=== PATIENT | female | born 1960 | race Caucasian/White ===

== ENCOUNTER 2021-11-27 16:42 | Outpatient (REF) | payer MEDICARE, MEDICAID, SELFPAY ==
--- NOTE | ~2021-11-27 | MR_ITS ---
EXAMINATION: MR LUMBAR SPINE WITHOUT CONTRAST CLINICAL INFORMATION: 61-year-old with history of previous fusion, with low back pain. Postlaminectomy syndrome. COMPARISON: None TECHNIQUE: MRI of the lumbar spine was obtained using routine sequences without contrast. FINDINGS: Coronal Alignment: Wrey-zi-qvqwmpyb mid lumbar dextrocurvature noted, convex to the right at L3. Sagittal Alignment: There is trace retrolisthesis at L3-L4 and L2-L3 with lordotic reversal centered at L1. There is slight gibbus angulation at T12-L1 related to a chronic, healed compression fracture of L1. Lumbosacral Junction: Normal. 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 Vertebral Bodies: There is a moderate, chronic, healed compression fracture deformity of L1 with Schmorl's node formation along its superior endplate. Remaining vertebral body heights are well-maintained. There is ferromagnetic artifact partially obscuring the T12, L1 and L2 vertebral bodies and posterior elements consistent with previous posterior instrumented spinal fusion. Disc Spaces and Endplates: Siao-qp-nsgozljv disc volume loss at L4-L5 with disc desiccation, with similar findings at L3-L4, with minor spondylosis at L3-L4. Severe disc space height loss at L2-L3 noted with the near-complete disc space collapse, with Schmorl's nodes, disc desiccation and/or intradiscal vacuum disc phenomenon and spondylosis. Anterior marginal endplate spurring at T12-L1 with disc desiccation and moderate disc space height loss at this level. Spinal Canal: No abnormal developmental findings. Bone Marrow: Minimal type I and type II degenerative marrow signal changes along the endplates at L2-L3 noted. There is reactive subchondral bone marrow edema on both sides of the right L5-S1 facet joint consistent with facet arthropathy with similar but less prominent findings at L4-L5 on the right. No suspicious marrow replacing process. Conus Medullaris: Terminates at L2. Morphology and signal is normal. Intradural Nerve Roots: Within normal limits. L5-S1: No significant disc bulge or herniation. There is fuxv-yh-hisbfcxp left-sided and csxdxkou-cz-nsoufb right-sided facet arthrosis with some inflammatory changes at the right facet joint without significant spinal canal stenosis. No significant neural foraminal stenosis and no evidence for neural impingement. L4-L5: Concentric disc bulging is noted with a superimposed left-sided extraforaminal/foraminal disc protrusion and disc osteophyte complex with left lateral annular fissuring. There is mild flattening of the ventral dural sac and there is ligamentum flavum thickening, probably with some ligamentous disc ossification or calcification on the right, with moderate bilateral facet arthropathy and mild central spinal canal stenosis. There is crowding of the subarticular zones bilaterally with pbre-bb-ldterdbt left and lklpvplc-yq-mfzjup right lateral recess stenosis probably encroaching on the traversing L5 nerve roots, right more than left. There is moderate left-sided and scyy-rj-uvvnzwff right-sided neural foraminal stenosis with left lateral disc osteophyte complex contacting the extraforaminal left L4 nerve root. L3-L4: Concentric disc bulging is noted with slight retrolisthesis with superimposed left-sided foraminal/extra foraminal disc osteophyte complex. Ngpmexnl-rb-pndhny right-sided and moderate left-sided facet arthropathy is noted with vysj-md-xjalrwua trefoil spinal canal stenosis with crowding of the subarticular zones and lateral recesses bilaterally. Irbiyrma-jz-flyuoe left-sided and moderate right-sided neural foraminal stenosis is noted with impingement on the exiting left L3 nerve root. L2-L3: Posterolateral disc osteophyte complex noted, with diffuse disc bulging and endplate spurring, with flattening of the ventral dural sac and moderate bilateral facet arthropathy. There is ckdl-oq-hecsxtzn central spinal canal stenosis with crowding of the intradural nerve roots and there is crowding of the subarticular zones bilaterally with moderate bilateral facet arthrosis. Moderate bilateral neural foraminal stenosis is noted. L1-L2: Posterior instrumented spinal fusion hardware noted in place at this level. No disc bulge or herniation. Small perineural cysts in the neural foramina bilaterally. No significant canal or neuroforaminal stenosis. T12-L1: Posterior instrumented spinal fusion hardware noted in place. Mild chronic retropulsion of the superior endplate of the compressed L1 vertebral body noted with yqvi-bg-fuxtqexl flattening the ventral dural sac without cord impingement or significant canal stenosis. No significant neural foraminal stenosis. T11-T12: There is facet arthropathy bilaterally, right more than left, with ligamentum flavum thickening and flattening of the dorsal dural sac with possible ligamentous calcification contacting the dorsolateral spinal cord on the right at this level without cord compression. Tiny right paramedian disc protrusion noted. Moderate central spinal canal stenosis is noted at this level and there is a 9 mm perineural cyst in the left neural foramen. There is nzjevyqb-mg-mgtdlf right-sided and moderate left-sided neural foraminal stenosis at this level. Paraspinal/Retroperitoneal: The visualized paravertebral soft tissues are unremarkable. MR/MR lumbar spine wo con IMPRESSION: 1. Gfnr-yd-anpdaqcj mid lumbar dextrocurvature, with mild degrees of retrolisthesis at L2-L3 and L3-L4, with lordotic reversal centered at L1 and mild gibbus angulation at T12-L1. 2. Status post posterior instrumented spinal fusion at T12-L1 and L1-L2 as detailed above with a chronic, healed compression fracture deformity of L1 with mild retropulsion of the superior endplate without cord impingement. 3. Discogenic degenerative changes between L2-L3 and L4-L5 inclusive, most severe at L2-L3. Multilevel disc bulging and disc osteophyte complexes, as detailed above with multilevel bilateral facet arthropathy. Yqja-ae-uxjkhqqr of trefoil spinal canal stenosis at L3-L4, mild central spinal canal stenosis at L4-L5 and tofm-zu-qmxjqpxz central spinal canal stenosis at L2-L3 with crowding of the intradural nerve roots primarily at L2-L3. Multilevel bilateral lateral recess stenosis as detailed above. 4. Multilevel bilateral neural foraminal stenosis between L2-L3 and L4-L5 inclusive as detailed by level above. 5. Posterior element hypertrophic degenerative changes at T11-T12 with moderate spinal canal stenosis at this level without lizzy cord compression. Xttapiay-jx-sggnbu neural foraminal stenosis at this level, right more than left.
== END 2021-11-27 16:43 | disposition home or self-care (01) ==
LOC: HO.MRI 16:42
PROVIDERS: Visit Provider Physical Medicine & Rehabilitation
DX: M96.1 Postlaminectomy syndrome, not elsewhere classified (principal)
CPT/HCPCS: 72148

== ENCOUNTER 2023-10-02 08:14 | Emergency (ER) | payer MEDICARE, MEDICAID, SELFPAY ==
[2023-10-02] VITALS (11 sets, daily range): BP systolic 92–143; BP diastolic 52–84; PULSE 65–92; RESP 13–29; TEMP 36.7; O2SAT 85–100; BMI 20.1
--- NOTE | ~2023-10-02 | CT_ITS ---
EXAMINATION: CT CHEST WITH CONTRAST CLINICAL INFORMATION: Left-sided ribs pain following fall COMPARISON: None available. TECHNIQUE: Multidetector volumetric CT imaging of the chest was obtained after the administration of 85 mL of Omnipaque 350 intravenous contrast without immediate adverse reactions. Axial MIP volume rendering provided. Sagittal and coronal reformatted images were obtained. This CT examination was performed using dose optimization techniques as appropriate, variously including the following: *Automated exposure control *Adjustment of mA and/or kV according to patient size (this includes techniques or standardized protocols for targeted exams where dose is matched to indication/reason for exam; i.e. 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 Partially collapsed left lung surrounded by significant amount of air and there is pleural effusion in the dependent portion of the chest. Right lung is unremarkable. MEDIASTINUM: There is mild mediastinal shift toward the right AXILLA: No lymphadenopathy. UPPER ABDOMEN: Unremarkable OSSEOUS STRUCTURES: There is mildly displaced fractures of the deep 5 6 and 7 along with a mid scapular line . There is subcutaneous emphysema along the left CT/CT chest w IV con IMPRESSION: 1. Large pneumothorax on the left with partial collapse of the left lung and mediastinal shift toward the right. 2. Pleural effusion 3. Subcutaneous emphysema 4. Left-sided rib fractures. Fleischner guidelines were followed. This critical result was discussed with Lilly Muir at 11:50 PM on 10/02/2023 and it was ascertained that the content and urgency of the report was understood at the time of direct communication. Electronically signed by: Keith Juarez MD 10/02/2023 12:02 PM EDT
--- NOTE | ~2023-10-02 | CT_ITS ---
EXAMINATION: CT HEAD WITHOUT CONTRAST CT CERVICAL SPINE WITHOUT CONTRAST CLINICAL INFORMATION: Fall from ladder. Head strike. Neck pain. COMPARISON: CT head 03/08/2011. TECHNIQUE: Recycling Sorter images were obtained. CAD imaging of the head and cervical spine was performed without contrast. Data was reformatted into multiplanar images at the acquisition workstation. This CT examination was performed using dose optimization techniques as appropriate, including one or more of the following: Automated exposure control, iterative reconstruction, and adjustment of technique factors (mA and/or kVp) according to patient size (this includes techniques or standardized protocols for targeted exams where dose is matched to indication/reason for exam). Fleischner Society criteria for the followup of incidental pulmonary nodules was implemented if appropriate. DLP: 761.82 mGy-cm. FINDINGS: Head: There is no acute intracranial hemorrhage or abnormal extra-axial collection. No intracranial mass effect or midline shift. Lateral and third ventricles are normal. No hydrocephalus. Haley-white matter differentiation is preserved and there is no evidence of an acute infarct. The calvarium and skull base are intact. Mastoid air cells and middle ear cavities are well aerated. No active paranasal sinus disease. Cervical spine: Alignment is normal. Vertebral body heights are preserved. No acute cervical spine fracture. No abnormal prevertebral soft tissue swelling. Bridging bone fuses the left C3-C4 articular facet joint. There is also bridging bone that fuses both of the C7-T1 facet joints. There is slight loss of intervertebral disc height with associated hypertrophic disc osteophyte spurring at C5-C6. A bulging disc in conjunction with facet degenerative change at this level causes at least mild canal stenosis. Uncovertebral joint spurring in conjunction with facet degenerative change causes mild to moderate neuroforaminal encroachment at multiple levels. Visualized soft tissues of the neck are unremarkable. A known left pneumothorax is partially included within the [id number] of this examination. CT/CT head/brain wo IV con IMPRESSION: Head: No acute intracranial hemorrhage. Cervical Spine: No acute cervical spine fracture and no posttraumatic spinal subluxation. There is multilevel degenerative spondylosis of the cervical spine with at least mild canal stenosis at C5-C6. Uncovertebral joint spurring in conjunction with facet degenerative change causes mild to moderate neuroforaminal encroachment at multiple levels. Electronically signed by: Kyle Darling MD 10/02/2023 11:21 AM EDT RP
--- NOTE | ~2023-10-02 | XR_ITS ---
EXAMINATION: XR CHEST CLINICAL INFORMATION: Status post chest tube. COMPARISON: Chest radiograph 10/02/2023 8:37 AM. TECHNIQUE: Frontal view of the chest was obtained. FINDINGS: Chest tube overlying the lateral left lower lung. Decreased and now small left-sided hydropneumothorax. Persistent consolidative opacities in the retrocardiac space. Clear right lung. Stable appearance of the cardiomediastinal silhouette. Redemonstration of multiple left-sided rib fractures of various age. Fixation plate and screws in the left clavicle. Partially seen thoracolumbar spinal hardware. Residual intravenous contrast opacifies the bilateral renal collecting systems. XR/XR chest 1V IMPRESSION: 1. Decreased and now small left-sided hydropneumothorax. 2. Persistent consolidative opacities in the retrocardiac space. 3. Redemonstration of multiple left-sided rib fractures. Electronically signed by: Edith Javier MD 10/02/2023 11:29 AM EDT
--- NOTE | ~2023-10-02 | XR_ITS ---
EXAMINATION: XR CHEST CLINICAL INFORMATION: Fall, chest wall trauma. COMPARISON: No similar priors. TECHNIQUE: Frontal view of the chest was obtained. FINDINGS: Moderate size left-sided hydropneumothorax. Consolidative airspace opacities in the retrocardiac region. Clear right lung. Mildly displaced age indeterminate fractures of the left posterior third and fourth ribs. Subtle nondisplaced acutely appearing fractures of the left posterior fifth and sixth ribs. Chronic left clavicular fracture with overlying fixation plate and traversing screws. Partially seen thoracolumbar spinal hardware appear XR/XR chest 1V IMPRESSION: 1. Moderate size left-sided hydropneumothorax. 2. Consolidative airspace opacities in the retrocardiac region could be related with contusion, atelectasis, aspiration or pneumonia. 3. Multiple left-sided rib fractures, likely a combination of subacute/chronic and acute. Please refer to already ordered CT chest for additional details which will be dictated separately. Electronically signed by: Edith Javier MD 10/02/2023 10:06 AM EDT
--- NOTE | ~2023-10-02 | XR_ITS ---
EXAMINATION: XR ELBOW, LEFT CLINICAL INFORMATION: Pain, fall. COMPARISON: Radiograph left elbow 03/08/2011. TECHNIQUE: AP, lateral, and oblique views of the left elbow. FINDINGS: The bones and soft tissues are normal. No fracture or joint effusion. Alignment is anatomic. Joint spaces are maintained. XR/XR elbow LT min 3V IMPRESSION: Normal left elbow. Electronically signed by: Edith Javier MD 10/02/2023 11:27 AM EDT
--- NOTE | ~2023-10-02 | CT_ITS ---
EXAMINATION: CT ABDOMEN AND PELVIS WITH CONTRAST CLINICAL INFORMATION: Left sided abdominal pain, status post fall COMPARISON: None available. TECHNIQUE: Multidetector volumetric images were obtained from the superior aspect of the liver through the pubic symphysis following administration 85 mL of Omnipaque 350 intravenous contrast. Sagittal and coronal reformatted images were obtained on the technologist's workstation. Oral contrast: No This CT examination was performed using dose optimization techniques as appropriate, variously including the following: *Automated exposure control *Adjustment of mA and/or kV according to patient size (this includes techniques or standardized protocols for targeted exams where dose is matched to indication/reason for exam; i.e. extremities or head) *Use of iterative reconstruction technique DLP: 376 mGy-cm FINDINGS: LUNG BASES: There is pneumothorax, left lung partial collapse and airspace disease with air bronchograms seen in the left lung base as well as small pleural effusion. There is subcutaneous emphysema along the left chest wall. LIVER, GALLBLADDER, AND BILIARY TREE: The liver is normal in size, shape, and attenuation. No focal hepatic lesion or biliary ductal dilatation is present. The gallbladder is unremarkable with no evidence of radiopaque gallstones, gallbladder wall thickening, or obvious pericholecystic inflammatory changes. PANCREAS: Unremarkable. SPLEEN: Unremarkable. ADRENAL GLANDS: Unremarkable. KIDNEYS AND URETERS: The kidneys are normal in size, shape, and attenuation. No hydronephrosis, hydroureter, or calculi seen. No perinephric stranding. BLADDER: Unremarkable. GASTROINTESTINAL TRACT: There is constipation. Loops of colon are otherwise unremarkable. Appendix is not seen. There is no ascites. ABDOMINAL WALL: No significant hernia is appreciated. LYMPH NODES: Normal. VASCULAR: Unremarkable. PELVIC VISCERA: Uterus is surgically absent. OSSEOUS STRUCTURES: Patient is status post fusion of L2-T12 and compression deformity L1 CT/CT abdomen pelvis w IV con IMPRESSION: 1. Left pneumothorax, airspace disease in the left lung base and small pleural effusion. 2. Constipation. 3. Status post fusion of L2-T12 and compression deformity of L1. Fleischner guidelines were followed. Electronically signed by: Keith Juarez MD 10/02/2023 12:12 PM EDT
--- NOTE | ~2023-10-02 | CT_ITS ---
EXAMINATION: CT HEAD WITHOUT CONTRAST CT CERVICAL SPINE WITHOUT CONTRAST CLINICAL INFORMATION: Fall from ladder. Head strike. Neck pain. COMPARISON: CT head 03/08/2011. TECHNIQUE: Molder Helper images were obtained. CAD imaging of the head and cervical spine was performed without contrast. Data was reformatted into multiplanar images at the acquisition workstation. This CT examination was performed using dose optimization techniques as appropriate, including one or more of the following: Automated exposure control, iterative reconstruction, and adjustment of technique factors (mA and/or kVp) according to patient size (this includes techniques or standardized protocols for targeted exams where dose is matched to indication/reason for exam). Fleischner Society criteria for the followup of incidental pulmonary nodules was implemented if appropriate. DLP: 761.82 mGy-cm. FINDINGS: Head: There is no acute intracranial hemorrhage or abnormal extra-axial collection. No intracranial mass effect or midline shift. Lateral and third ventricles are normal. No hydrocephalus. Haley-white matter differentiation is preserved and there is no evidence of an acute infarct. The calvarium and skull base are intact. Mastoid air cells and middle ear cavities are well aerated. No active paranasal sinus disease. Cervical spine: Alignment is normal. Vertebral body heights are preserved. No acute cervical spine fracture. No abnormal prevertebral soft tissue swelling. Bridging bone fuses the left C3-C4 articular facet joint. There is also bridging bone that fuses both of the C7-T1 facet joints. There is slight loss of intervertebral disc height with associated hypertrophic disc osteophyte spurring at C5-C6. A bulging disc in conjunction with facet degenerative change at this level causes at least mild canal stenosis. Uncovertebral joint spurring in conjunction with facet degenerative change causes mild to moderate neuroforaminal encroachment at multiple levels. Visualized soft tissues of the neck are unremarkable. A known left pneumothorax is partially included within the bjjep-[id number]-boax of this examination. CT/CT cervical spine wo IV con IMPRESSION: Head: No acute intracranial hemorrhage. Cervical Spine: No acute cervical spine fracture and no posttraumatic spinal subluxation. There is multilevel degenerative spondylosis of the cervical spine with at least mild canal stenosis at C5-C6. Uncovertebral joint spurring in conjunction with facet degenerative change causes mild to moderate neuroforaminal encroachment at multiple levels. Electronically signed by: Kyle Darling MD 10/02/2023 11:21 AM EDT
--- NOTE | 2023-10-02 08:41 | ED.GENADULT ---
HPI - General Adult General Chief complaint: Fall Stated complaint: FALL 2 DAYS AGO Time Seen by Provider: 10/02/23 08:41 Source: patient and EMS Mode of arrival: EMS Limitations: no limitations History of Present Illness ED Provider: Luz Maria GAYLE HPI narrative: This is a 62 year old female pmhx significant for HLD presents s/p fall of ladder 2 days ago, patient reports she was on the ladder was an old bladder that was not working properly, the legs fell from underneath her, she landed on her left side hurting her left ribs left lower abdomen and left elbow. She reports since then she is having significant discomfort with breathing, rib pain, left elbow pain. All of these worse with movement better at rest. She reports today she has been significantly short of breath, this has never happened to her before. She denies head strike or loss of consciousness. She is not on blood thinners. Denies chest pain, nausea, vomiting, vision changes, dizziness, weakness, headache. Related Data Allergies Allergy/AdvReac Type Severity Reaction Status Date / Time codeine [CODEINE] Allergy Unknown NAUSEA & Verified 10/02/23 10:38 VOMITING Review of Systems Review of Systems: Yes all other systems are reviewed and are negative PMFSH Past Medical History Source: old records reviewed and nursing notes reviewed Social History Social History Advance Directives: No Advance Directives Information Provided: Yes Physical Exam ED Vital Signs: Vital Signs - 24 hr 10/02/23 08:34 10/02/23 09:30 10/02/23 09:40 Pulse Rate 92 71 70 Respiratory Rate 24 H 24 H 13 Blood Pressure 94/59 L 100/61 99/63 Pulse Oximetry 85 L 100 99 Oxygen Delivery Method Room Air Oxygen Flow Rate 10/02/23 09:48 10/02/23 09:50 10/02/23 09:55 Pulse Rate 71 74 73 Respiratory Rate 29 H 17 15 Blood Pressure 98/62 141/84 H 143/78 H Pulse Oximetry 100 100 98 Oxygen Delivery Method Oxygen Flow Rate 10/02/23 10:00 10/02/23 11:09 Pulse Rate 78 67 Respiratory Rate 19 16 Blood Pressure 131/77 99/68 Pulse Oximetry 97 88 L Oxygen Delivery Method Oxymask Oxygen Flow Rate 5 BMI result Body Mass Index 20.1 vss Appearance: Alert.? Oriented X3.? No acute distress.? Head: Normocephalic, atraumatic, no step-offs or deformities Eyes: Pupils equal, round and reactive to light.? Neck: Normal inspection.? Neck supple.? CVS: Normal heart rate and rhythm.? Pulses normal.? Respiratory: No respiratory distress.? Breath sounds normal.? Abdomen: Soft and nontender.?+ tenderness to palpation to entire left side laterally and anteriorly. No paradoxical breathing Skin: Skin warm and dry.? Normal skin color.? Normal skin turgor.? Extremities: No lower extremity edema.? No calf ttp. 5/5 strength to bilateral upper and lower extremities Neuro: Oriented X 3.? No motor deficit.? No sensory deficit. CN 2-12 intact Course Reevaluation(s) Reevaluation #1: Chest tube placed by thoracic SILVANA Blood. Time: 09:49 Reevaluation #2: Patient's CBC is unremarkable. No notable anemia. Chemistry with no acute findings needing intervention. Slightly elevated transaminases this may be patient's baseline I do not have a baseline to compare with. No abdominal tenderness on exam. Will also cover patient with ceftriaxone and azithromycin for possible pneumonia/aspiration. Time: 11:00 Reevaluation #3: Spoke w/ Dr. Ashby who recommends patient should get an epidural which cant be done here today. Patient would benefit from trauma transfer to [facility]. Time: 12:37 Additional Reevaluation(s): Patient will be a level two trauma transfer to [facility] [place] Dr. Smith accepting. Patient and ok with plan and fajardo of plan. Patient will go with a disc and all images uploaded to [facility] Medications Administered Discontinued Medications Generic Name Dose Route Start Last Admin Trade Name Freq PRN Reason Stop Dose Admin Diphtheria/Tetanus/Acell Pertussis 0.5 ml 10/02/23 08:49 10/02/23 09:22 Diphth,Pertus(Acell),Tet Adult 0.5 Ml Syringe IM 10/02/23 08:50 0.5 ml .ONCE ONE Administration Fentanyl 50 mcg 10/02/23 09:05 10/02/23 09:19 Fentanyl Citrate/Pf 100 Mcg/2 Ml Vial IVPUSH 10/02/23 09:06 50 mcg ONCE ONE Administration Protocol Fentanyl 50 mcg 10/02/23 09:12 10/02/23 10:38 Fentanyl Citrate/Pf 100 Mcg/2 Ml Vial IVPUSH 10/02/23 09:13 50 mcg ONCE ONE Administration Protocol Sodium Chloride 1,000 mls @ 999 mls/hr 10/02/23 09:15 10/02/23 10:39 Ns IV 10/02/23 10:15 999 mls/hr .Q1H1M KE Administration Ceftriaxone Sodium 1 gm/ 50 mls @ 100 mls/hr 10/02/23 10:20 10/02/23 11:11 Sodium Chloride IV 10/02/23 10:49 Infused ONCE ONE Infusion Azithromycin 500 mg/ Sodium 250 mls @ 125 mls/hr 10/02/23 10:20 10/02/23 12:36 Chloride IV 10/02/23 12:19 Infused ONCE ONE Infusion Iohexol 100 ml 10/02/23 09:05 10/02/23 09:06 Iohexol 350 Mg/Ml 100 Ml Infus..Btl IV 10/02/23 09:06 85 ml ONCE ONE Administration Lidocaine HCl 20 ml 10/02/23 09:11 10/02/23 10:38 Lidocaine Hcl 1 % 20 Ml Vial SUBCUT 10/02/23 09:12 20 ml ONCE ONE Administration Medical Decision Making Medical Decision Making [facility] Narrative: [id number] 62-year-old female presents status post fall off ladder 2 days ago, patient fell onto her left side, reports no head strike or loss of consciousness. Now having severe left-sided pain as well as shortness breath & hemoptysis. Not on blood thinner History and physical exam with tenderness to palpation overlying the left lateral and anterior ribs throughout. Present breath sounds bilaterally. Laceration to left elbow. Neurovascular status intact. Hx and pe concerning for rib fx vs pneumothorax vs flail chest. Will rule out pna. Unlikely pe, acs. Will rule out traumatic injury to head, neck, chest, abdomen and pelvis. Left elbow does not appear broken however will appear obtain x-ray imaging, unlikely fracture, dislocation. No signs of neurovascular compromise or threat to limb Plan labs, imaging Differential Diagnosis Differential Diagnoses: The differential diagnosis associated with the presentation includes Hx and pe concerning for rib fx vs pneumothorax vs flail chest. Will rule out pna. Unlikely pe, acs. Will rule out traumatic injury to head, neck, chest, abdomen and pelvis. Left elbow does not appear broken however will appear obtain x-ray imaging, unlikely fracture, dislocation. No signs of neurovascular compromise or threat to limb Admission/Observation Consideration of admission/observation: Escalation of care including admission/observation considered Possible Lab Data MDM Lab Attestation statement: I reviewed the patient's lab results. 10/02/23 11:24 10/02/23 11:24 Labs: Lab Results 10/02/23 Range/Units 11:24 WBC 7.5 (4.8-10.8) X10*3/uL RBC 4.19 L (4.20-5.50) X10*6/uL Hgb 12.0 (12.0-16.0) g/dl Hct 36.0 L (37.0-47.0) % MCV 85.9 (80.0-98.0) fL MCH 28.6 (27.0-33.0) pg MCHC 33.3 (31.0-35.0) g/dl RDW 13.5 (11.0-16.0) % Plt Count 128 L (160-400) X10*3/uL MPV 9.0 L (9.4-12.3) fL Immature Gran % (Auto) 0.8 H (0.0-0.4) % Neut % (Auto) 71.7 (45-73) % Lymph % (Auto) 14.7 L (20-40) % Pendleton % (Auto) 10.2 (2-11) % Eos % (Auto) 2.3 (0-4) % Baso % (Auto) 0.3 (0-2) % Lymph # (Auto) 1.1 L (1.2-4.9) X10*3/uL [place]endleton # (Auto) 0.8 (0.1-1.2) X10*3/uL Eos # (Auto) 0.2 (0.0-0.4) X10*3/uL Baso # (Auto) 0.0 (0.0-0.2) X10*3/uL Abs Immat Gran (auto) 0.06 H (0.00-0.03) X10*3/uL Absolute Neuts (auto) 5.4 (2.0-8.3) x10*3/uL Absolute Nucleated RBC 0.000 (0.0-0.012) X10*3/uL Nucleated RBC % (auto) 0.0 (0.0-0.2) /100WBC PT 12.1 (11.1-13.3) SEC INR 1.0 (0.9-1.1) Sodium 135 (135-145) mmol/L Potassium 4.6 (3.3-5.1) mmol/L Chloride 102 (96-108) mmol/L Carbon Dioxide 27 (22-29) mmol/L Anion Gap 11 L (12-20) BUN 16 (9-16) mg/dL Creatinine 0.66 (0.5-1.4) mg/dL Estim Creat Clear Calc 85.9 Estimated GFR > 60 Random Glucose 112 (60-115) mg/dL Calcium 8.8 (8.4-10.2) mg/dL Magnesium 2.0 (1.6-2.6) mg/dL Total Bilirubin 0.6 (0.0-1.0) mg/dL AST 34 H (5-31) U/L ALT 40 H (0-31) U/L Alkaline Phosphatase 41 (39-117) U/L Total Protein 6.5 (6.5-8.0) g/dL Albumin 3.8 (3.5-5.0) g/dL Influenza Type A (PCR) NEGATIVE (Negative) Influenza Type B (PCR) NEGATIVE (Negative) RSV RNA Qual (PCR) NEGATIVE (Negative) SARS-CoV-2 RNA (RT-PCR) NEGATIVE (Negative) Independent Interpretation I performed an independent interpretation of an: Plain X-Ray (XR/XR chest 1V IMPRESSION: 1. Decreased and now small left-sided hydropneumothorax. 2. Persistent consolidative opacities in the retrocardiac space. 3. Redemonstration of multiple left-sided rib fractures. ) and CT Scan (CT/CT head/brain wo IV con IMPRESSION: Head: No acute intracranial hemorrhage. Cervical Spine: No acute cervical spine fracture and no posttraumatic spinal subluxation. There is multilevel degenerative spondylosis of the cervical spine with at least mild canal stenosis at C5-C6. Uncovertebral j) Interpretation: CT/CT cervical spine wo IV con IMPRESSION: Head: No acute intracranial hemorrhage. Cervical Spine: No acute cervical spine fracture and no posttraumatic spinal subluxation. There is multilevel degenerative spondylosis of the cervical spine with at least mild canal stenosis at C5-C6. Uncovertebral joint spurring in conjunction with facet degenerative change causes mild to moderate neuroforaminal encroachment at multiple levels. Radiology Impression Discussion of test interpretation with radiology: I have reviewed the radiologist's reading. Independent Historian Clinical information obtained from an independent historian. History obtained from or confirmed by: Spouse ( ) Critical Care Time Critical Care Time Critical Care Time: Yes Total Critical Care Time: 35 Attestation: I attest to this time spent taking care of the patient, obtaining history, physical, reviewing labs, imaging, speaking to my attending, specialist or hospitalist. Discharge Plan Discharge Clinical Impression: Accidental fall from ladder, Pneumothorax, Elbow pain, left, Hypoxia, Compression fracture Patient Disposition: [facility] Print Language: Slovenian
--- NOTE | 2023-10-02 08:49 | PC.NURSE ---
Vitals obtained during triage, patient sating 85% on RA , moved to to ED1, placed on oxy mask at 6 liters sating 98%. Chest x ray ordered, provider at bedside,
[2023-10-02] MEDS: iohexoL 350 MG/ML 100 ML INFUS..BTL IV (09:06)
[2023-10-02] MEDS: fentaNYL citrate/PF 100 MCG/2 ML VIAL 50 MCG IVPUSH ×4 (09:19→14:00)
[2023-10-02] MEDS: Diphth,Pertus(ACell),Tet Adult 0.5 ML SYRINGE IM (09:22)
--- NOTE | 2023-10-02 10:02 | PC.NURSE ---
Assisted Dr. Ashby in chest tube placement. sedation not used, local anesthetic used.
--- NOTE | 2023-10-02 10:02 | HO.THORCONS ---
History of Present Illness Consult details Consult date: 10/02/23 Requesting physician: Que Yun Narrative: This is a 62 year old female with PMH of HLD who presented to the ED for shortness of breath. She reports falling off a ladder 2 days ago. She was about one story up. She landed on her left side hurting her left ribs left lower abdomen and left elbow. She did not seek care at that time hoping it would get better however she has had progressively worsening discomfort with breathing, shortness of breath, rib and left elbow pain. She has begun to spit up blood. She denies head strike or loss of consciousness. She is not on blood thinners. Denies chest pain, nausea, vomiting, vision changes, dizziness, weakness, headache. Work up in the ED included CXR which showed mildly displaced left posterior third and fourth ribs, nondisplaced acutely appearing fractures of the left posterior fifth and sixth ribs and left moderate hydropneumothorax. Chest CT confirmed this (official read pending). Thoracic surgery was consulted for chest tube placement and management of the left hemopneumothorax. Review of Systems Constitutional: Constitutional: Denies chills and Denies fever(s) ENT: Denies dizziness Cardiovascular: Cardiovascular: Denies chest pain, Denies palpitations and Reports dyspnea Respiratory: Respiratory: Reports as per HPI, Reports hemoptysis and Reports dyspnea Gastrointestinal: Gastrointestinal: Denies abdominal pain and Denies vomiting Integumentary/Breasts: Skin/Breast: Denies rash and Denies jaundice Neurologic: Denies dizziness Endocrine: Endocrine: Denies palpitations [facility] Social History Social History Advance Directives: No Advance Directives Information Provided: Yes Meds Allergies Allergy/AdvReac Type Severity Reaction Status Date / Time codeine [CODEINE] Allergy Unknown NAUSEA & Verified 10/02/23 10:38 VOMITING Active Medications: Current Medications Sodium Chloride (Ns) 1,000 mls @ 999 mls/hr IV .Q1H1M KE Stop: 10/02/23 10:15 Physical Exam Vital Signs: Vital Signs: Last Vital Signs Pulse 78 10/02/23 10:00 Resp 19 10/02/23 10:00 BP 131/77 10/02/23 10:00 Pulse Ox 97 10/02/23 10:00 O2 Del Method Room Air 10/02/23 08:34 Oxygen Flow Rate 6 10/02/23 10:00 BMI result Body Mass Index 20.1 Const: General: comfortable (uncomfortable appearing ), no acute distress, well developed and alert; No diaphoretic Orientation/consciousness: patient oriented x3 Chest: Other: no ecchymosis of of chest wall Chest palpation & inspection: normal inspection of the chest and no crepitus Resp: Effort & Inspection: normal respiratory effort, no respiratory distress, no segmental paradox chest wall movement, not tachypneic, no tracheal deviation and no use of accessory muscles Cardio: Rate: regular rate Skin: General skin exam: no rashes or lesions noted Neuro: General: patient oriented x3 and moves all extremities Results Labs 10/02/23 11:24 10/02/23 11:24 Labs: All other labs normal. Imaging Chest x-ray: image reviewed CT scan - chest: image reviewed Assessment and Plan (1) Hemopneumothorax on left: Status: Acute Plan 62 year old female with PMH of HLD with worsening shortness of breath and pleuritic pain after falling off a ladder 2 days ago and landing on her left side. Imaging has been reviewed and is consistent with left hemopneumothorax. CT abd/pelvis no hemoperitoneum upon reviewed. H/H stable. Tachypneic with O2 sat 85% on RA. Improved with supplemental o2 on 6L oxymask. Recommended proceeding with left chest tube placement at bedside for treatment of the moderate left hemopneumothorax. Risks and benefits discussed including infection, bleeding, pain, injury to surrounding structures including diaphragm, nerves. She agreed to proceed and this was performed in the ED at bedside. Will continue to follow for chest tube management. She will need good pain control for the rib fractures, incentive spirometer. Please see separate procedure note for chest tube insertion. Procedures Date of Service Date of Service: 10/02/23
--- NOTE | 2023-10-02 10:05 | PC.NURSE ---
chest tube atrium at -20 cm, + fluctuation noted, occasional air leak noted with coughing, sanguineous drainage present, 160 cc return upon insertion. pt tolerated insertion well, sitting up in bed, able to take a deep breath and cough, pain 10/10, dressing clean, dry and intact.
--- NOTE | 2023-10-02 10:14 | PC.NURSE ---
lung sounds auscultated, clear BS on the R, dim on the left.
--- NOTE | 2023-10-02 10:27 | PM.PROC ---
Brief Operative Note Date of procedure: 10/02/23 Pre-op diagnosis: left hemopneumothorax Post-op diagnosis: same Procedure: The risks and benefits, alternatives were discussed with the patient and informed consent was obtained. Site for placement at left anterolateral chest was marked. This area was then prepped with betadine and draped in the usual sterile fashion. 20 mL of 1% lidocaine was used for local anesthesia of the skin and subcutaneous tissues. A skin incision was made using a 10 blade measuring approximately 2 cm. This was carried down into the subcutaneous tissues and then dissected down to the intercostal space with a metzenbaum scissor. The pleural cavity was carefully entered with the annette and a rosie was then used to dilate the space and insert the 28F angled chest tube. It was then connected to the pleurvac with immediate evacuation of a large amount of air and some sanguineous fluid. The chest tube was then secured to the skin with a silk suture and the incision was closed with two interrupted sutures. A sterile dressing was applied over the site. The patient tolerated the procedure well. No immediate complications. Post procedure film ordered. Anesthesia: local Surgeon: Caitie Jacques Pathology: none sent Condition: stable Disposition: no change
[2023-10-02] MEDS: Lidocaine HCl 1 % 20 ML VIAL SUBCUT (10:38)
[2023-10-02] MEDS: 0.9 % Sodium Chloride 1,000 ML 999 ML IV (10:39)
[2023-10-02] MEDS: cefTRIAXone sodium 1 GM in 0.9 % Sodium Chloride 50 ML IV (10:39)
--- NOTE | 2023-10-02 11:10 | PC.NURSE ---
Assumed care of this patient at 1100, L sided CT continues on -20LWS, draining sanguineous drainage, patient continues to c/o pain.
--- NOTE | 2023-10-02 11:16 | PC.NURSE ---
abx started, per Lorna PINA, kaye to give ABX without blood cultures
[2023-10-02 11:28] LABS: MANUAL DIFF FLAG NO
[2023-10-02] MEDS: Azithromycin 500 MG in 0.9 % Sodium Chloride 250 ML 125 MG IV (11:28)
[2023-10-02 11:30] LABS: Basophils Percent Auto 0.3 % (0-2); Eosinophils Absolute Auto 0.2 X10*3/uL (0.0-0.4); Eosinophils Percent Auto 2.3 % (0-4); Imm Gran Abs Auto 0.06 X10*3/uL (0.00-0.03); Imm Gran Pct Auto 0.8 % (0.0-0.4); Lymphocytes Absolute Auto 1.1 X10*3/uL (1.2-4.9); Lymphocytes Percent Auto 14.7 % (20-40); Mean Corpuscular HGB Conc 33.3 g/dl (31.0-35.0); Mean Corpuscular Hemoglobin 28.6 pg (27.0-33.0); Mean Corpuscular Volume 85.9 fL (80.0-98.0); Monocytes Absolute Auto 0.8 X10*3/uL (0.1-1.2); Monocytes Percent Auto 10.2 % (2-11); Neutrophils Absolute Auto 5.4 x10*3/uL (2.0-8.3); Neutrophils Percent Auto 71.7 % (45-73); Platelet Count 128 X10*3/uL (160-400); Red Blood Count 4.19 X10*6/uL (4.20-5.50); Red Cell Distribution Width 13.5 % (11.0-16.0); White Blood Count 7.5 X10*3/uL (4.8-10.8)
[2023-10-02 11:33] LABS: Prothrombin Time 12.1 SEC (11.1-13.3)
[2023-10-02 11:44] LABS: Alanine Aminotransferase 40 U/L (0-31); Albumin Level 3.8 g/dL (3.5-5.0); Alkaline Phosphatase 41 U/L (39-117); Anion Gap 11 (12-20); Aspartate Amino Transferase 34 U/L (5-31); Bilirubin Total 0.6 mg/dL (0.0-1.0); Blood Urea Nitrogen 16 mg/dL (9-16); Calcium 8.8 mg/dL (8.4-10.2); Carbon Dioxide 27 mmol/L (22-29); Chloride 102 mmol/L (96-108); Creatinine Clr Calc Pharmacy 85.9; Estimated Glomerular Filt Rate > 60; Glucose Random 112 mg/dL (60-115); Potassium 4.6 mmol/L (3.3-5.1); Sodium 135 mmol/L (135-145); Total Protein 6.5 g/dL (6.5-8.0)
[2023-10-02 12:23] LABS: Influenza A PCR NEGATIVE (Negative); Influenza B PCR NEGATIVE (Negative); Resp Syncy Virus RNA Qual PCR NEGATIVE (Negative); SARS COV2 PCR INHOUSE NEGATIVE (Negative)
--- NOTE | 2023-10-02 13:35 | PC.NURSE ---
RN to RN report given to Larisa at [facility], all questions answered, patient currently waiting for EMS to be transferred to [facility].
== END 2023-10-02 14:05 | disposition short-term general hospital (02) ==
PROVIDERS: Physician Assistant; Emergency Provider Emergency Medicine
DX: S22.42XA Multiple fractures of ribs, left side, initial encounter for closed fracture (principal); S27.2XXA Traumatic hemopneumothorax, initial encounter; W11.XXXA Fall on and from ladder, initial encounter; R09.02 Hypoxemia; R04.2 Hemoptysis; J93.9 Pneumothorax, unspecified; M47.892 Other spondylosis, cervical region; M48.02 Spinal stenosis, cervical region; M48.52XA Collapsed vertebra, not elsewhere classified, cervical region, initial encounter for fracture; S51.012A Laceration without foreign body of left elbow, initial encounter; M25.522 Pain in left elbow; R05.9 Cough, unspecified; R06.02 Shortness of breath; Y93.89 Activity, other specified; Y92.039 Unspecified place in apartment as the place of occurrence of the external cause; Y99.9 Unspecified external cause status; Z23 Encounter for immunization; Z03.818 Encounter for observation for suspected exposure to other biological agents ruled out
CPT/HCPCS: 0241U; 32556; 70450; 71045; 71260; 72125; 73080; 74177; 80053; 83735; 85025; 85610; 90471; 90715; 96361; 96365; 96368; 96375; 96376; 99285; 99291; J0456; J0696; J3010; Q9967

== ENCOUNTER → 2023-10-02 09:36 | Outpatient (BNV) | payer MEDICARE, MEDICAID, SELFPAY | PROVIDERS: Emergency Provider Emergency Medicine; Visit Provider Physician Assistant Surgical | DX: J94.2 Hemothorax (principal) | CPT/HCPCS: 32551; 99284 ==

== ENCOUNTER 2023-10-09 16:28 | Outpatient (REF) | payer MEDICARE, MEDICAID, SELFPAY ==
--- NOTE | ~2023-10-09 | MR_ITS ---
EXAMINATION: MR LUMBAR SPINE WITHOUT CONTRAST CLINICAL INFORMATION: Chronic back pain, fall off extension latter recently. Since 2008 has back pain. History of T12-L2 fusion. Right lower extremity symptoms. COMPARISON: 11/27/[address] abdomen and pelvis 10/02/2023. TECHNIQUE: Multiplanar multisequence MR imaging of the lumbar spine was done without IV contrast. Standard sequences were utilized without gadolinium. Please note, due to [facility] contractual, systems, and staffing issues, an [facility] radiologist was not available for review and dictation of this case until 10/30/2023. FINDINGS: POSTOPERATIVE FINDINGS: -There has been fusion of T12-L2 with posterior connecting rods and transpedicular screws. Hardware generates localized susceptibility artifact, immediately obscuring adjacent soft tissue and bone. -There has been associated bone grafting material placed in the T12-L2 lamina, which has fused with the bone and is not fragmented. -Bone marrow grafting harvest site in the right posterior medial iliac bone. CORONAL ALIGNMENT: -Mild dextroconvex scoliosis, apex at L2-3. SAGITTAL ALIGNMENT: -Normal lordosis. 3 mm degenerative anterolisthesis T12-L1, stable. -3 mm degenerative retrolisthesis L2 on L3, stable. -Trace degenerative anterolisthesis L3 on L4, stable. LUMBOSACRAL JUNCTION: Normal. There are 5 [id number] lumbar-type vertebral bodies. VERTEBRAL BODIES/BONE MARROW: -There is diffuse osteopenia. No suspicious infiltrating marrow signal. -There has been further minimal (approximately 10%) compression of L1 anteriorly, where there is now bone marrow edema and a subtle T1 fracture line traversing the left aspect of the vertebral body in a vertical fashion. This extends into the inferior endplate transversely. No retropulsion of bone. -In addition, bone marrow edema is seen throughout the lamina and spinous processes of L1 and L2, with an oblique nondisplaced linear fracture traversing the lamina. -Only visible in the inferior aspect of the sagittal STIR sequence, bone marrow edema present in the right aspect of S2 and bilaterally and bilaterally in a partially imaged S3, with a suggestion of a small ventral periosteal hematoma at S3, measuring 7 mm AP diameter, incompletely imaged (series 5, image 11). Suspect sacral insufficiency fractures. In review of the recent CT, these are essentially radio-occult. DISCS: -Severe loss of disc height and signal present at L2-3, with moderate loss seen at T12-L1, L3-4, and L4-5. -There is relative preservation of T11-T12, L1-L2, and L5-S1. SPINAL CANAL: No abnormal developmental findings. 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 CONUS MEDULLARIS: Terminates at L2. Morphology and signal is normal. INTRADURAL NERVE ROOTS: No clumping or masses appreciated. Axial Disc Space Images: T12-L1: 3 mm anterolisthesis T12 on L1 with pseudodisc osteophyte complex, contacting and mildly effacing the ventral thecal sac without contacting the conus. Bilateral facet hypertrophy with bone grafting material in the lamina. Mild central canal stenosis, and mild bilateral neural foraminal stenosis allowing for susceptibility artifact. No significant interval change. L1-L2: Shallow disc bulge centrally and extending into the right lateral and foraminal zones. Posterior fusion. Bone grafting material with facet hypertrophy bilaterally, resulting in minimal central canal narrowing, and mild bilateral neural foraminal narrowing. No significant interval change. L2-L3: 3 mm retrolisthesis. Diffuse disc osteophytic bulge, extending into both foraminal zones and lateral to foramen. Moderate to severe bilateral hypertrophic facet changes, posterior ligamentous thickening/infolding, with the combination of findings resulting in moderate to severe central canal stenosis (AP diameter of the thecal sac is 7 mm), moderate bilateral subarticular recess stenosis, with contact but no definite compression of the traversing bilateral L3 roots. There is moderate to severe left greater than right neural foraminal stenosis. No significant interval change. L3-L4: Diffuse broad-based disc extrusion extending into the lateral and foraminal zones bilaterally, with disc osteophytic material extending left lateral to foramen. Moderate to severe hypertrophic degenerative facet changes, posterior ligamentous thickening/infolding, with findings resulting in moderate central canal stenosis, severe bilateral subarticular recess stenosis with mass effect upon the traversing bilateral L4 nerve roots, moderate right and moderate to severe left neural foraminal stenosis. No significant interval change. L4-L5: Shallow diffuse concentric disc bulge, with annular fissuring in the left foraminal zone, extending into both foraminal zones. Moderate to severe hypertrophic degenerative facet changes, marked posterior ligamentous thickening/infolding, with findings resulting in moderate central canal stenosis, severe bilateral subarticular recess stenosis with mass effect and possible impingement on the traversing right greater than left L5 nerve roots (correlate for L5 radicular symptoms), and moderate to severe bilateral neural foraminal stenosis. No significant interval change. L5-S1: Evidence of prior right hemilaminotomy. Tiny central disc protrusion without mass effect. Severe right and moderate left hypertrophic degenerative facet changes, however no significant central canal stenosis and there is only mild bilateral neural foraminal stenosis. There is mild right greater than left subarticular recess narrowing. No significant interval change. IMAGED SI JOINTS: -Moderate degenerative arthritis bilaterally. PARAVERTEBRAL AND INCLUDED EXTRASPINAL SOFT TISSUES: -Mild edema in the paravertebral soft tissues at L1 spanning L2. Similar changes at S3, incompletely imaged. -No aortic aneurysm. Limited imaging of the kidneys demonstrates no abnormalities. -Small left greater than right pleural effusions. Mild atrophy of the inferior paraspinous musculature. -8 mm common bile duct, unchanged from CT 10/02/2023. -Jeannine's lobe of the liver. MR/MR lumbar spine wo con IMPRESSION: 1. Patient is again noted to be status post posterior instrumented fusion T12-L2 as discussed. Diffuse well fused bone grafting material at T12-L2 involving the lamina and medial facets. There has also likely been a right laminotomy at L5-S1 2. There is bone marrow edema with T1 fracture line through the inferior endplate and left aspect of L1 (subacute fracture), with minimal loss of the ventral height (approximately 10%). No retropulsion of bone. 3. There is bone marrow edema with horizontally oriented nondisplaced fracture through the T1-T2 fused lamina and extending into the spinous process (subacute fracture). 4. There are incompletely imaged sacral fractures, with a small partially imaged 7 mm ventral S3 subperiosteal hematoma. 5. Spondylotic findings are stable from the prior MRI of 11/27/2021, most significant at L2-3 and L3-4. Please refer to the above. 6. Severe disc degeneration T12-L1, and L2-3. Multilevel hypertrophic facet degeneration right greater than left, most significant at L5-S1. 7. Osteopenia diffusely. 8. Additional ancillary findings as discussed in the body of the report. Electronically signed by: Pepe Rios MD 10/30/2023 09:40 AM EDT
== END 2023-10-09 16:29 | disposition home or self-care (01) ==
LOC: HO.MRI 16:28
PROVIDERS: PCP Nurse Practitioner Family; Visit Provider Nurse Practitioner Women's Health
DX: M96.1 Postlaminectomy syndrome, not elsewhere classified (principal)
CPT/HCPCS: 72148

== ENCOUNTER → 2023-10-09 16:50 | Outpatient (BNV) | payer MEDICARE, MEDICAID, SELFPAY | PROVIDERS: PCP Nurse Practitioner Family; Visit Provider Radiology Diagnostic Radiology | DX: M96.1 Postlaminectomy syndrome, not elsewhere classified (principal) | CPT/HCPCS: 72148 ==

== ENCOUNTER 2023-10-28 14:19 | Outpatient (REF) | payer MEDICARE, MEDICAID, SELFPAY ==
--- NOTE | ~2023-10-28 | MM_ITS ---
EXAMINATION: BONE DENSITOMETRY CLINICAL INDICATION: Osteopenia. COMPARISON: This is the patient's baseline examination. TECHNIQUE: Using a [employer] DXA System (software version: 13.1) manufactured by [employer], dual-energy x-ray absorptiometry was performed of the lumbar spine and left hip. The images are of good technical quality. Summary results are attached. FINDINGS: LEFT FEMUR, NECK: BMD 0.784 g/cm2, Z-score -0.4, T-score -1.8, osteopenia. LEFT FEMUR, TOTAL: BMD 0.688 g/cm2, Z-score -1.4, T-score -2.5, osteoporosis. AP SPINE L3-L4 (excluding L1 and L2): The data of L1-L4 has been changed to exclude the L1 and L2 vertebral bodies, because hardware at these levels may cause overestimation of lumbar spine density. BMD 1.055 g/cm2, Z-score 0.3, T-score -1.2, osteopenia. IDENTIFIED RISK FACTORS: Recurrent falls, height loss, low calcium intake, history of fracture (adult). Early menopause, secondary osteoporosis, hysterectomy, bilateral oophorectomy. HISTORY OF FRACTURE: Spine, humerus/shoulder. Other. MEDICATIONS: Calcium supplements or multivitamin, vitamin D. MM/XR DEXA axial skeleton IMPRESSION: 1. DIAGNOSIS: Severe osteoporosis based on the lowest T-score value of -2.5 in the total femur applying World Health Organization criteria. 2. 10-YEAR FRACTURE RISK PREDICTION, FRAX: According to the guidelines, FRAX calculation should only be performed on patients in the osteopenia bone density category. Therefore, FRAX was not performed on this patient. 3. Treatment Recommendations: NOF guidelines recommend consideration for treatment in postmenopausal women and men age 50 and older presenting with the following: -A hip or vertebral (clinical or morphometric) fracture. -T-score less than or equal to -2.5 at the femoral neck or spine after appropriate evaluation to exclude secondary causes. -Low bone mass at the hip or spine and a 10-year fracture probability by FRAX of greater than or equal to 3% for hip fracture or greater than or equal to 20% for major osteoporotic fracture based on the [place] adapted WHO algorithm. 4. Other Recommendations: All treatment decisions require clinical judgment and consideration of individual patient factors, including patient preferences, comorbidities, previous drug use, risk factors not captured in the FRAX model (e.g. frailty, falls, vitamin D deficiency, increased bone turnover, interval significant decline in bone density) and possible under or overestimation of fracture risk by FRAX. Additional medical evaluation for secondary cause of low bone mineral density may be appropriate. FUTURE SCAN RECOMMENDATION: People with diagnosed cases of osteoporosis or at high risk for fracture should have regular bone mineral density tests. For patients eligible for Medicare, routine testing is allowed once every 2 years. The testing frequency can be increased to one year for patients who have rapidly progressing disease, those who are receiving or discontinuing medical therapy to restore bone mass, or have additional risk factors. Electronically signed by: Jason Morris MD 11/17/2023 08:34 AM EDT RP
== END 2023-10-28 14:20 | disposition home or self-care (01) ==
LOC: HO.MAMMO 14:19
PROVIDERS: Visit Provider Nurse Practitioner Women's Health
DX: Z13.820 Encounter for screening for osteoporosis (principal); M85.80 Other specified disorders of bone density and structure, unspecified site; Z78.0 Asymptomatic menopausal state
CPT/HCPCS: 77080

== ENCOUNTER 2024-04-08 07:22 | Outpatient (REF) | payer MEDICARE, MEDICAID, SELFPAY ==
--- NOTE | ~2024-04-08 | CT_ITS ---
CLINICAL HISTORY: L1 COMPRESSION FX, CT lumbar spine without contrast Comparison: 10/09/2023 Findings: L1 vertebral body compression fracture is not significantly changed. Surgical hardware appears well-positioned Vertebral alignment is within normal limits. No acute fractures or dislocations. Multiple level degenerative disc and facet change, most pronounced at L2-L3. Endplates are maintained. Visualized abdominal contents unremarkable. IMPRESSION: 1. L1 vertebral body compression fracture, unchanged. 2. Significant degenerative disc changes at L2-L3. This document has been electronically signed by: Tom Mcmillan MD on 04/08/2024 08:53:10
--- OUTSIDE RECORDS SUMMARY | 2024-04-08 07:25 | XMS_ITS | Encounter Summary ---
Author Organization [employer] Address [address] [facility] [address] [place] [address] Care Team Providers Care Recreation Technician Name Role Phone Unavailable Primary Care Provider Unavailabl e Reason for Visit * Reason Onset Date Comments medication 04/11/2022 Encounter Details Date Type Department Care Team ([facility] st Contact Info) Description 04/11/2022 Telephone [facility] ADULT DENTAL [address] [place] [address] Rios Corrales, DMD [address] [place] [address] medication Social History Tobacco Use Types Packs/Day Years Used Date Smoking Tobacco: Never Assessed Comments Unknown Sex and Gender Information Value Date Recorded Sex Assigned at Female 12/09/2021 10:25 AM EDT Legal Sex Female 10:25 AM EDT Gender Identity Female 09/24/2022 4:15 PM EDT Sexual Orientation Lesbian 09/24/2022 4: 15 PM EDT documented as of this encounter Miscellaneous Notes * Telephone Encounter - Jazz Hernandez - 04/11/2022 8:46 AM EST Patient would like a refill of chlorehexadine gluconate mouth rinse sent to the pharmacy. Pls advise documented in this encounter Plan of Treatment Not on file documented as of this encounter Visit Diagnoses Not on filedocumented in this encounter
--- OUTSIDE RECORDS SUMMARY | 2024-04-08 07:25 | XMS_ITS | Encounter Summary ---
Author Organization [employer] Address [address] [facility] [address] [place] [address] Care Team Providers Care Functional Tester Name Role Phone Unavailable Primary Care Provider Unavailabl e Reason for Visit * Reason Comments Med Refill Encounter Details Date Type Department Care Team ([facility] st Contact Info) Description 02/22/2023 Refill [facility] ADULT DENTAL [address] [place] [address] Rios Corrales DMD [address] [place] [address] Social History Tobacco Use Types Packs/Day Years Used Date Smoking Tobacco: Unknown Alcohol Use Standard Drinks/Week Comments Not Currently 0 (1 standard drink = 0.6 oz pur e alcohol) Comments Unknown Sex and Gender Information Value Date Recorded Sex Assigned at Female 12/09/2021 10:25 AM EDT Legal Sex Female 10:25 AM EDT Gender Identity Female 09/24/2022 4:15 PM EDT Sexual Orientation Lesbian 09/24/2022 4: 15 PM EDT documented as of this encounter Miscellaneous Notes * Telephone Encounter - Rios Corrales DMD - 02/24/2023 8:03 AM EST Approving, but needs appt for additional refills. documented in this encounter Plan of Treatment Not on file documented as of this encounter Visit Diagnoses Not on filedocumented in this encounter
--- OUTSIDE RECORDS SUMMARY | 2024-04-08 07:25 | XMS_ITS | Clinical Summary ---
Author Organization [employer] Address [address] [facility] [address] [place] [address] Care Team Providers Care Developer Programmer Analyst Name Role Phone Unavailable Primary Care Provider Unavailabl e Allergies Active Allergy Reactions Criticality Noted Date Comments Codeine 09/20/2012 Other reaction(s): nausea/vomiting Latex 09/20/2012 Other reaction(s): rash itchy Medications traZODone (Desyrel) 50 MG tablet TAKE 2 TO 3 TABLETS BY MOUTH DAILY AT BEDTIME NEEDED 3 Active rosuvastatin (Crestor) 5 MG tablet Take 1 tablet by mouth in the morning. Active rizatriptan (Maxalt) 10 MG tablet 3 Active rizatriptan (Maxalt) 10 MG tablet Take 1 tablet by mouth. 3 Active polyethylene glycol-electrol ytes (Nulytely) 420 g solution MIX AND DRINK DIRECTED 2 Active polyethylene glycol-electrol ytes (Nulytely Lemon-[place]) 420 g solution See Instructions, per GI office, # 4,000 mL, 0 Refills, Maintenance, 10/18/21 13:02:00 EDT, [id number], Partial fill upon patient request if the prescription is for a schedule II opioid drug., per GI office, 168.7, cm, 09/25/21 15:09:... 2 Active chlorhexidine (Peridex) 0.12 % solution RINSE 15 ML BY MOUTH DAILY IN THE MORNING, 15 ML AT NOON, AND 15 ML AT BEDTIME NEEDED FOR PROPHYLAXIS FOR UP TO 5 DAYS 473 mL Active Active Problems No known active problems Social History Tobacco Use Types Packs/Day Years Used Date Smoking Tobacco: Unknown Tobacco Cessation:Counseling Given: Not Answered Alcohol Use Standard Drinks/Week Comments Not Currently 0 (1 standard drink = 0.6 oz pur e alcohol) Comments Unknown Sex and Gender Information Value Date Recorded Sex Assigned at Female 12/09/2021 10:25 AM EDT Legal Sex Female 10:25 AM EDT Gender Identity Female 09/24/2022 4:15 PM EDT Sexual Orientation Lesbian 09/24/2022 4: 15 PM EDT Last Filed Vital Signs Vital Sign Reading Time Taken Comments Blood Pressure 102/80 10/27/2023 8:28 AM EDT Pulse - - Temperature - - Respiratory Rate - - Oxygen Saturation - - Inhaled Oxygen Concentration - - Weight - - Height - - Body Mass Index - - Plan of Treatment Health Maintenance Due Date Last Done Comments CT Colonography 1962 Colonoscopy 1962 Colorectal Cancer Screening 1962 Dental X-Ray: Bitewings 1962 Depression Screening 1962 FIT DNA/Cologuard 1962 FIT 1962 FOBT 1962 HIV Screening 1962 SDOH Screening 1962 Sigmoidoscopy 1962 Alcohol/Substance Use Screening 1974 Hepatitis C Screening 1980 Pap Smear 10/19/1983 Cervical Cancer Screening 1992 HPV/Cotest 1992 Mammogram 2002 Pneumococcal Vaccine: 50+ Years (2 of 2 - PCV) 02/12/2012 02/11/2011 Pneumococcal Vaccine: Pediatrics (0 to 5 Years) and At-Risk Patients (6 to 49) Years) (2 of 2 - PCV) 02/12/2012 02/11/2011 Dental Oral Exam 05/12/2013 11/10/2012 Dental Prophylaxis 11/25/2013 05/25/2013, 09/27/2012 Dental X-Ray: Full Mouth 11/12/2015 11/10/2012 Zoster Vaccines (2 of 2) 05/03/2022 03/08/2022 RSV Patients and Patients Aged 60 years or older (1 - Risk 60-74 years 1-dose series) 2022 COVID-19 Vaccine (2023- season) 2023 11/28/2022, 05/14/2022, 12/09/2021, Additional history exists Influenza Vaccine (#1) 2023 2, 12/28/2013, 12/01/2013, Additional history exists Tobacco Screening 10/29/2024 10/30/2023 DTaP/Tdap/Td Vaccines (4 - Td or Tdap) 10/01/2033 10/02/2023, 05/14/2022, 02/11/2011 HIB Vaccines Aged Out No longer eligi ble based on patient's age to complete this topic HPV Vaccines Aged Out No longer eligi ble based on patient's age to complete this topic Hepatitis A Vaccines Aged Out No long er eligible based on patient's age to complete this topic Hepatitis B Vaccines Aged Out No long er eligible based on patient's age to complete this topic IPV Vaccines Aged Out No longer eligi ble based on patient's age to complete this topic Meningococcal Vaccine Aged Out No duy nancy eligible based on patient's age to complete this topic RSV under 20 months Aged Out No longe r eligible based on patient's age to complete this topic Rotavirus Vaccines Aged Out No longer eligible based on patient's age to complete this topic Procedures Procedure Name Priority Date/Time Associated Diagnosis Comments PROPHYLAXIS - ADULT Routine 05/25/2013 1 2:00 AM EDT PANORAMIC RADIOGRAPHIC IMAGE Routine 11/10/2012 12:00 AM EDT COMPREHENSIVE ORAL EVALUATION - NEW OR ESTABLISHED PATIENT Routine 11/10/2012 12:00 AM EDT from Last 3 Months or Most Recently Relevant to Health Maintenance Insurance [facility] MEDICAID STAND ADULT
--- OUTSIDE RECORDS SUMMARY | 2024-04-08 07:25 | XMS_ITS | Clinical Summary ---
Author Organization Formerly [facility] Address [address] [place] [address] Care Team Providers Care Flask Carrier Name Role Phone Pcp, No MD Primary Care Provider Unavailabl e Allergies Active Allergy Reactions Criticality Noted Date Comments Codeine 11/15/2017 Latex 11/15/2017 Medications gabapentin (NEURONTIN) 400 mg capsule Take 400 mg by mouth 3 (three) times a day. Active diclofenac (VOLTAREN) 25 mg EC tablet Take 25 mg by mouth 2 (two) times a day. Active omeprazole (PriLOSEC) 10 mg capsule Take 10 mg by mouth daily. Active loperamide (IMODIUM) capsule Take 2 mg by mouth 4 (four) times a day as needed for diarrhea. Active morphine (MS CONTIN) 15 mg 12 hr tablet Take 15 mg by mouth 2 (two) times a day. Active Active Problems Problem Noted Date Diagnosed Date Depression 11/15/2017 Overview (11/15/2017): Pt states that she sees a psychiatrist, Leatha Kemp, for years, diagnosis of MDD, anxiety, denies admissions to psychiatry unit, denies IOPs, tried Welbutrin, Klonazepam, denies suicide attempts in the past. Sees therapist, but does not know name. ? Social History Tobacco Use Types Packs/Day Years Used Date Smoking Tobacco: Every Day Smokeless Tobacco: Never Comments Unknown Sex and Gender Information Value Date Recorded Sex Assigned at Not on file Legal Sex Female 3:02 AM EST Gender Identity Not on file Sexual Orientation Not on file Last Filed Vital Signs Vital Sign Reading Time Taken Comments Blood Pressure 122/74 11/15/2017 9:17 PM EDT Pulse 76 11/15/2017 9:17 PM EDT Temperature 36.6 ??C (97.9 ??F) 11/15/2017 9:17 PM ED T Respiratory Rate 17 11/15/2017 9:17 PM EDT Oxygen Saturation 95% 11/15/2017 9:17 PM EDT Inhaled Oxygen Concentration - - Weight 65.8 kg (145 lb) 11/15/2017 9:17 PM EDT Height 175.3 cm (5' 9 ) 11/15/2017 9:17 PM EDT Body Mass Index 21.41 11/15/2017 9:17 PM EDT Plan of Treatment Not on file Insurance MEDICAID OUT OF STATE MEDICARE PART A & B Care Teams Flask Carrier Relationship Specialty Start Date End Date Elvira Oakes MD [address] [place] [address] PCP - General Internal Medicine 11/15/17
== END 2024-04-08 07:23 | disposition home or self-care (01) ==
LOC: HO.CT 07:22
PROVIDERS: Visit Provider Physical Medicine & Rehabilitation
DX: S32.010D Wedge compression fracture of first lumbar vertebra, subsequent encounter for fracture with routine healing (principal); M46.26 Osteomyelitis of vertebra, lumbar region
CPT/HCPCS: 72131

== ENCOUNTER → 2024-04-08 07:27 | Outpatient (BNV) | payer MEDICARE, MEDICAID, SELFPAY | PROVIDERS: Visit Provider Specialist | DX: S32.010A Wedge compression fracture of first lumbar vertebra, initial encounter for closed fracture (principal); M51.369 Other intervertebral disc degeneration, lumbar region without mention of lumbar back pain or lower extremity pain | CPT/HCPCS: 72131 ==

== ENCOUNTER 2024-09-14 16:51 | Outpatient (REF) | payer MEDICARE, MEDICAID, SELFPAY ==
--- NOTE | ~2024-09-14 | XR_ITS ---
EXAMINATION: XR CERVICAL SPINE 4-5 VIEWS HISTORY: PAIN COMPARISON: Comparison is made with the prior examination dated 05/07/2018. FINDINGS: AP, lateral, bilateral oblique, and open-mouth odontoid views of the cervical spine are submitted. The bones are osteopenic. Seven cervical vertebral bodies are identified maintaining normal height and alignment without evidence of fracture or subluxation. There is mild to moderate degenerative disc disease with disc space narrowing and osteophyte formation. There is narrowing of the bilateral C3-4, C4-5, C5-6, and C6-7 neural foramen secondary to facet osteoarthritis and uncovertebral joint hypertrophy. The odontoid and lateral masses of C1 are intact. There is no prevertebral soft tissue swelling. There are surgical clips in the right neck. The patient is status post internal fixation of the left clavicle. XR/XR cervical spine 5V IMPRESSION: Degenerative changes of the cervical spine as described. Electronically signed by: Kyle Jordan MD 09/15/2024 07:55 AM EDT
--- OUTSIDE RECORDS SUMMARY | 2024-09-14 16:54 | XMS_ITS | Encounter Summary ---
Author Organization [employer] Address [address] [place] [address] [address] [place] [address] Care Team Providers Care Hat Forming Machine Operator Name Role Phone Unavailable Primary Care Provider Unavailabl e Reason for Visit * Reason Comments Med Refill Encounter Details Date Type Department Care Team ([facility] st Contact Info) Description 02/22/2023 Refill [facility] ADULT DENTAL [address] [place] [address] Rios Corrales DMD [address] [place] [address] Social History Tobacco Use Types Packs/Day Years [...]
--- OUTSIDE RECORDS SUMMARY | 2024-09-14 16:54 | XMS_ITS | Encounter Summary ---
Author Organization [facility] Address [address] [facility] [address] [place] [phone] Phone Care Team Providers Care Revit Drafter Name Role Phone Otilia Chapa MD Primary Care Provider Berenice sawant Encounter Details Date Type Department Care Team (Late st Contact Info) Description 04/22/2017 Ancillary Orders Virtual Department [address] [place] [address] Cuauhtemoc Resendez MD [address] [place] [address] [email or web address] Sagittal plane imbalance Social History Tobacco Use Types Packs/Day Years Used Date Smoking Tobacco: Never Assessed Comments Unknown Sex and Gender Information Value Date Recorded Sex Assigned at Not on file Legal Sex Female 12:57 PM EST Gender Identity Not on file Sexual Orientation Not on file documented as of this encounter Plan of Treatment Not on file documented as of this encounter Results * XR SCOLIOSIS STUDY SUPINE OR ERECT 1 VIEW (05/04/2017 5:30 PM EDT) Anatomical Region Laterality Modality C-spine, T-spine, L-spine Radiog raphic Imaging 05/04/2017 5:40 PM EDT Impressions 05/04/2017 5:44 PM EDT Straightening of lower thoracic lordosis with a 26 degree curvature demonstrated at the T12-L2 fusion levels. POS [id number] Narrative 05/04/2017 5:44 PM EDT COMPARISON: Outside CT dated 03/31/2017 FINDINGS: Upright lateral views only were obtained as per request revealing straightening of normal midthoracic kyphosis and lower thoracic lordosis. There is grossly stable compression deformity of the L1 vertebral body with interpedicular screws extending into the T12, L1, and L2 vertebrae. There is an approximate 26 degree kyphotic curvature at the fusion levels. No additional vertebral body compression deformity apparent. Degenerative disc changes are present at the L2-3 level. Procedure Note Lazaro Kimble MD - 05/04/2017 COMPARISON: Outside CT dated 03/31/2017 FINDINGS: Upright lateral views only were obtained as per request revealingstraightening of normal midthoracic kyphosis and lower thoracic lordosis.There is grossly stable compression deformity of the L1 vertebral bodywith interpedicular screws extending into the T12, L1, and L2 vertebrae.There is an approximate 26 degree kyphotic curvature at the fusion levels.No additional vertebral body compression deformity apparent.Degenerative disc changes are present at the L2-3 level. IMPRESSION: Straightening of lower thoracic lordosis with a 26 degree curvaturedemonstrated at the T12-L2 fusion levels. POS [id number] Cuauhtemoc Resendez MD IMG XR SPINE Final Res ult * XR THORACIC SPINE 3 VIEW (05/04/2017 5:28 PM EDT) Anatomical Region Laterality Modality T-spine Radiographic Lisa ging 05/04/2017 5:44 PM EDT Impressions 05/04/2017 5:50 PM EDT Left convex T2-6 curvature measured at approximately 10 degrees. POS [id number] Narrative 05/04/2017 5:50 PM EDT COMPARISON: None FINDINGS: Frontal and lateral views were obtained. There is a left convex T2-6 curvature measured at approximately 10 degrees. No thoracic fracture identified. A fixation plate traverses a left clavicular fracture. Procedure Note Lazaro Kimble MD - 05/04/2017 COMPARISON: None FINDINGS: Frontal and lateral views were obtained. There is a left convex T2-6curvature measured at approximately 10 degrees. No thoracic fractureidentified. A fixation plate traverses a left clavicular fracture. IMPRESSION: Left convex T2-6 curvature measured at approximately 10 degrees. POS [id number] Cuauhtemoc Resendez MD IMG XR SPINE Final Res ult documented in this encounter Visit Diagnoses Diagnosis Sagittal plane imbalance Other curvatures of spine associated with other conditions Sagittal plane imbalance Other curvatures of spine associated with other conditions Sagittal plane imbalance Other curvatures of spine associated with other conditions documented in this encounter Care Teams Revit Drafter Relationship Specialty Start Date End Date Otilia Chapa MD PCP - General 04/17/17 documented as of this encounter Additional Source Comments The information contained in this document represents components of the legal health record. It is not the complete legal health record.[facility]
--- OUTSIDE RECORDS SUMMARY | 2024-09-14 16:54 | XMS_ITS | Clinical Summary ---
Author Organization [facility] Address [address] [place] [address] Care Team Providers Care Acid Adjuster Name Role Phone Pcp, No MD Primary [...] Sees therapist, but does not know name. Social History Tobacco Use Types Packs/Day Years [...] 76 11/15/2017 9:17 PM EDT Temperature 36.6 C (97.9 F) 11/15/2017 9:17 PM EDT Respiratory Rate 17 11/15/2017 9:17 PM EDT [...] MEDICARE PART A & B Care Teams Acid Adjuster Relationship Specialty Start Date End Date Elvira Oakes MD [address] [place] [phone] PCP - General Internal Medicine 11/15/17
== END 2024-09-14 16:52 | disposition home or self-care (01) ==
LOC: HO.XRAY 16:51
PROVIDERS: PCP Nurse Practitioner Family; Visit Provider Physical Medicine & Rehabilitation
DX: M47.22 Other spondylosis with radiculopathy, cervical region (principal)
CPT/HCPCS: 72050

== ENCOUNTER → 2024-09-14 17:05 | Outpatient (BNV) | payer MEDICARE, MEDICAID, SELFPAY | PROVIDERS: PCP Nurse Practitioner Family; Visit Provider Radiology Diagnostic Radiology | DX: M54.2 Cervicalgia (principal) | CPT/HCPCS: 72050 ==